=== PATIENT | male | born 1995 | race Caucasian/White ===

== ENCOUNTER 2023-03-18 12:46 | Emergency (ER) | payer MEDICARE, MEDICAID, SELFPAY ==
[2023-03-18 13:02] VITALS: BP 135/84; PULSE 105; RESP 16; TEMP 36.5; O2SAT 96
--- NOTE | 2023-03-18 14:47 | ED_ITS ---
HPI - Extremity Injury (Lower) General Time Seen by Provider: 14:47 Date Seen: 03/18/23 Chief Complaint: Extremity Pain/Injury, Lower Stated Complaint: L foot injury Time Seen by Provider: 03/18/23 14:47 Source: RN notes reviewed and other Limitations: no limitations History of Present Illness HPI Narrative: Patient is a 27-year-old male developmentally delayed very pleasant man who is here with his mom in the ER after sustaining a left ankle injury. [place] today and sounds like he tripped. Since that time he has had a limp on that side. He had a previous injury ankle sprain on this side within the past few months. He is unable to describe pain to me. He is lifting his ankle off the bed to show me the injury. Related Data Home Medications Medication Instructions Recorded Confirmed Unobtainable 03/18/23 03/18/23 Allergies Allergy/AdvReac Type Severity Reaction Status Date / Time No Known Drug Allergies Allergy Verified 03/18/23 13:08 Review of Systems Narrative: No known head injury, no respiratory distress no vomiting. Exam Narrative: Exam Narrative: Awake. Interactive. Nonverbal but giggling. Ears eyes nose clear. Heart with regular rate and rhythm and lungs are clear to auscultation. Abdomen soft. Examination of the left ankle shows obvious lateral malleolar swelling. No ecchymosis at this time. Achilles appears to be intact. I am unable to ascertain of palpation over the 5th metatarsal or navicular elicits pain. Const: Vital Signs, click to edit/add: Vital Signs - 24 hr 03/18/23 13:02 Temperature 97.7 F Pulse Rate [Pulse Oximeter] 105 H Respiratory Rate 16 Blood Pressure [Ri ght Upper Arm] 135/84 Pulse Oximetry 96 Oxygen Delivery Me thod Room Air Course Vital Signs Vital signs: Initial Vital Signs Temperature 97.7 F 03/18/23 13:02 Temperature Source Temporal Artery Scan 03/18/23 13:02 Pulse Rate 105 H 03/18/23 13:02 Respiratory Rate 16 03/18/23 13:02 Blood Pressure 135/84 03/18/23 13:02 Blood Pressure Mean 101 03/18/23 13:02 Blood Pressure Position Sitting 03/18/23 13:02 Pulse Oximetry 96 03/18/23 13:02 Oxygen Delivery Method Room Air 03/18/23 13:02 Vital Signs Temperature 97.7 F 03/18/23 13:02 Pulse Rate 105 H 03/18/23 13:02 Respiratory Rate 16 03/18/23 13:02 Blood Pressure 135/84 03/18/23 13:02 Pulse Oximetry 96 03/18/23 13:02 Oxygen Delivery Method Room Air 03/18/23 13:02 Temperature 97.7 F 03/18/23 13:02 Pulse Rate 105 H 03/18/23 13:02 Respiratory Rate 16 03/18/23 13:02 Blood Pressure 135/84 03/18/23 13:02 Pulse Oximetry 96 03/18/23 13:02 Oxygen Delivery Method Room Air 03/18/23 13:02 MDM - Extremity Injury (Lower) MDM Narrative Medical decision making narrative: 1. Left ankle injury-no evidence of fracture per Radiology. Patient is noted to be bearing some weight on this foot. We did place him in a cam walker any seems to be doing well with that. Do not feel that crutches would be helpful in this particular situation. Note that he should be improving over the next 2-3 days. If he his still having difficulty with weight-bearing or limping would have him follow-up with a primary clinic. Return to the emergency room as needed. Suggest Tylenol or ibuprofen as needed for discomfort. Ice and elevation as tolerated. 2. Disposition-home with Mom at this time. Imaging Data Left ankle and foot x-ray: Attestation: I have reviewed the pertinent imaging results. My impression: Questionable bony irregularity of the posterior aspect of the distal tibia. On ly noted on one view. Radiologist's impression: Bones: Alignment is normal. No fractures or bone lesions. Joint spaces: Unremarkable. Soft tissues: Unremarkable. Impression: No sign of acute injury. here is no displaced fracture or dislocation. There are hammertoe changes of the 2nd through 5th digits. The soft tissues are unremarkable. Impression: No acute osseus abnormality. Discharge Plan Discharge Clinical Impression: Ankle sprain and strain Patient Disposition: Home w/ Parent or Adult Condition: Improved Additional Instructions: Recommend wearing of boot for comfort. Ibuprofen or Tylenol as needed for d iscomfort. If not improving please follow-up with primary MD. This should be improved over the next 2-3 days. Prescriptions: No Action Unobtainable Follow Up/Referrals: Provider,Not a Local [Primary Care Provider] - Stand Alone Forms: Unified Color Info Instructions
--- NOTE | 2023-03-18 14:52 | CRLHL7_ITS ---
For Patients: As a result of the Cures Act, medical imaging exams and procedure reports are released immediately into your electronic medical record. You may view this report before your referring provider. If you have questions, please contact your health care provider. Indication: Injury of left ankle. Technique: Left ankle 3 views. Comparison: None. Findings: Bones: Alignment is normal. No fractures or bone lesions. Joint spaces: Unremarkable. Soft tissues: Unremarkable. Impression: No sign of acute injury. Dictated by Shiva Tijerina MD @ 03/18/2023 4:17:29 PM (Electronically Signed)
--- NOTE | 2023-03-18 14:52 | CRLHL7_ITS ---
For Patients: As a result of the Cures Act, medical imaging exams and procedure reports are released immediately into your electronic medical record. You may view this report before your referring provider. If you have questions, please contact your health care provider. Indication: Left foot pain, tripped Comparison: None available. Technique: AP and lateral views left foot were obtained. Findings: There is no displaced fracture or dislocation. There are hammertoe changes of the 2nd through 5th digits. The soft tissues are unremarkable. Impression: No acute osseus abnormality. Dictated by Nitesh Kirk MD @ 03/18/2023 4:21:05 PM (Electronically Signed)
== END 2023-03-18 17:08 | disposition home or self-care (01) ==
PROVIDERS: Emergency Provider Family Medicine
DX: S93.402A Sprain of unspecified ligament of left ankle, initial encounter (principal); W01.0XXA Fall on same level from slipping, tripping and stumbling without subsequent striking against object, initial encounter
CPT/HCPCS: 73610; 73620; 99283